=== PATIENT | female | born 1995 | race Caucasian/White ===

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

== ENCOUNTER 2017-01-24 21:50 | Emergency (ER) | payer SELFPAY ==
[~2017-01-24] VITALS: Ht 160 cm; Wt 61.2 kg
[2017-01-24 22:50] LABS: BLOOD UREA NITROGEN 21 mg/dL (7-18)
[2017-01-25 00:01] VITALS: BP 112/64
== END 2017-01-25 00:03 | disposition home or self-care (01) ==
LOC: ED 23:57
DX: B37.3 Candidiasis of vulva and vagina (principal); R10.2 Pelvic and perineal pain
CPT/HCPCS: 36415; 76830; 80048; 81003; 82040; 84703; 85025; 87210; 87491; 87591; 87808

== ENCOUNTER 2017-02-26 18:17 | Emergency (ER) | payer SELFPAY ==
[~2017-02-26] VITALS: Ht 160 cm; Wt 60.4 kg
[2017-02-26 18:28] VITALS: BP 105/69
[2017-02-26] MEDS ORDERED: KETOROLAC 30 MG/1 ML ONE (18:46)
[2017-02-26] MEDS ORDERED: DEXAMETHASONE 4 MG TABLET ONE (18:46)
[2017-02-26] MEDS ORDERED: KETOROLAC 30 MG/1 ML IM ONE (19:00)
[2017-02-26] MEDS ORDERED: DEXAMETHASONE 4 MG TABLET PO ONE (19:00)
== END 2017-02-26 19:33 | disposition home or self-care (01) ==
LOC: ED 19:26
DX: J02.0 Streptococcal pharyngitis (principal)
CPT/HCPCS: 96372; 99283; J1885

== ENCOUNTER 2017-03-25 00:25 | Emergency (ER) | payer OTHER ==
[~2017-03-25] VITALS: Ht 160 cm; Wt 60.7 kg
[2017-03-25 01:13] LABS: HCG UR OBC PASS
[2017-03-25 01:40] VITALS: BP 117/69
== END 2017-03-25 01:43 | disposition home or self-care (01) ==
LOC: ED 00:55
DX: N39.0 Urinary tract infection, site not specified (principal); N30.91 Cystitis, unspecified with hematuria
CPT/HCPCS: 81001; 81025; 87077; 87086; 87186; 99284